=== PATIENT | male | born 1955 | race Caucasian/White ===

== ENCOUNTER 2022-04-20 09:23 | Day surgery (SDC) | payer MEDICARE, BC ==
[~2022-04-20 09:23] MED LIST: Lactated Ringers 1,000 ML IV SCH; Lidocaine 1%/Sod Bicarbonate in NS 8.4% 1 ML Syringe IDERM PRN; Sodium Chloride 0.9% 10 ML Syringe FLUSH PRN; Sodium Chloride 0.9% 10 ML Syringe FLUSH SCH
[2022-04-20] MEDS ORDERED: fentaNYL 100 MCG/2 ML SDV IVPUSH PRN (10:06)
[2022-04-20] MEDS ORDERED: Ondansetron 4 MG/2 ML SDV IVPUSH PRN (10:06)
[2022-04-20] MEDS ORDERED: HYDROmorphone 0.5 MG/0.5 ML Syringe IVPUSH PRN (10:06)
[2022-04-20] MEDS ORDERED: Ropivacaine 0.5% 5 MG/ML 30 ML SDV ONE (10:57)
[2022-04-20] MEDS ORDERED: Midazolam 1 MG/ML 2 ML SDV ONE (10:58)
[2022-04-20] MEDS ORDERED: Propofol 200 MG/20 ML SDV ONE ×2 (10:59→12:25)
[2022-04-20] MEDS ORDERED: Lidocaine 1% 5 ML VIAL ONE (10:59)
[2022-04-20] MEDS ORDERED: Pregabalin 25 MG Cap PO SCH (11:04)
[2022-04-20] MEDS ORDERED: Acetaminophen 325 MG Tab PO SCH (11:04)
[2022-04-20] MEDS ORDERED: oxyCODONE ER 10 MG TAB.ER PO SCH (11:04)
[2022-04-20] MEDS ORDERED: ceFAZolin 2 GM Vial ONE (11:07)
[2022-04-20] MEDS: Tranexamic Acid 1,000 MG/10 ML Vial ONE ×2 (12:13→12:44)
[2022-04-20] MEDS: Vancomycin 1 GM SDV ONE ×2 (12:14→12:44)
[2022-04-20] MEDS: Morphine 8 MG, EPINEPHrine 0.3 MG, Cefuroxime 750 MG, Ketorolac 30 MG, Sodium Chloride ... PRN ×10 (12:14→12:38)
[2022-04-20] MEDS: Bupivacaine 0.25% 10 ML SDV ONE ×2 (12:30→13:04)
[2022-04-20] MEDS ORDERED: Ketorolac 30 MG/ML SDV ONE (12:30)
[2022-04-20] MEDS ORDERED: Ondansetron 4 MG/2 ML SDV ONE (12:30)
[2022-04-20] MEDS: Triamcinolone Acetonide 40 MG/ML 1 ML SDV ONE ×2 (12:30→13:04)
== END 2022-04-20 15:40 | disposition home or self-care (01) ==
LOC: JD.SDS 09:23
PROVIDERS: ATTEND Orthopaedic Surgery
DX: M17.0 Bilateral primary osteoarthritis of knee (principal); E78.2 Mixed hyperlipidemia; E66.01 Morbid (severe) obesity due to excess calories; Z79.899 Other long term (current) drug therapy; Z68.41 Body mass index [BMI] 40.0-44.9, adult; Z98.890 Other specified postprocedural states; Z79.82 Long term (current) use of aspirin
CPT/HCPCS: 0055T; 20610; 27447; 73560; 97110; 97116; 97161; A9270; C1713; C1776; J0171; J0690; J0697; J1885; J2250; J2270; J2405; J2704; J2795; J3301; J3370; J3490; J7120; 01402; 64450; 76942

== ENCOUNTER 2023-05-10 09:07 | Day surgery (SDC) | payer MEDICARE, BC ==
[~2023-05-10 09:07] MED LIST changes: -Lidocaine 1%/Sod Bicarbonate in NS 8.4% 1 ML Syringe IDERM PRN
[2023-05-10] MEDS ORDERED: Lidocaine 2% 5 ML SDV ONE (11:02)
[2023-05-10] MEDS ORDERED: Propofol 200 MG/20 ML SDV ONE ×3 (11:03→11:51)
[2023-05-10] MEDS ORDERED: Lactated Ringers 1,000 ML IV ONE (12:00)
== END 2023-05-10 13:05 | disposition home or self-care (01) ==
LOC: JD.SDS 09:07
PROVIDERS: ATTEND Surgery
DX: Z12.11 Encounter for screening for malignant neoplasm of colon (principal); D12.3 Benign neoplasm of transverse colon; K63.5 Polyp of colon; K62.1 Rectal polyp; K57.30 Diverticulosis of large intestine without perforation or abscess without bleeding; K64.4 Residual hemorrhoidal skin tags; K64.8 Other hemorrhoids; E66.9 Obesity, unspecified; Z68.41 Body mass index [BMI] 40.0-44.9, adult; Z79.899 Other long term (current) drug therapy
CPT/HCPCS: 45380; 88305; J2704; J7120; 00811; J3490